=== PATIENT | female | born 1975 | race Caucasian/White ===

== ENCOUNTER 2018-11-07 07:58 | Emergency (ER) | payer OTHER, MEDICAID, SELFPAY ==
[2018-11-07 07:58] VITALS: BP 138/67; PULSE 85; RESP 18; TEMP 37.1; O2SAT 97; BMI 35.5
--- NOTE | 2018-11-07 08:09 | ED.ABDPAIN ---
HPI - Abdominal Pain General Chief Complaint: Abdominal Pain Stated Complaint: Abd pain Time Seen by Provider: 11/07/18 08:02 Source: patient and EMS Mode of arrival: EMS Limitations: no limitations History of Present Illness HPI narrative: Patient is a 43-year-old female with history of endometriosis presenting with sudden onset of right lower quadrant pain. She received 250 mg of fentanyl prior to arrival it seems to be a little bit better. 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 She has denies nausea vomiting or painful urination. The pain is non migratory. Moving makes pain worse. MD complaint: abdominal pain Location: RLQ Severity: severe Quality: stabbing Migration to: no migration Relieving factors: nothing Exacerbating factors: movement Related Data Previous Rx's Medication Instructions Recorded meloxicam 7.5 mg PO DAILY #10 tab 11/07/18 Allergies Allergy/AdvReac Type Severity Reaction Status Date / Time No Known Drug Allergies Allergy Verified 11/07/18 08:07 Review of Systems Review of Systems GENERAL: Denies chills, fatigue, malaise, fever, sweats, travel HEENT: Denies sinus pain, ear pain, sore throat, difficulty swallowing, neck pain RESPIRATORY: Denies dyspnea, cough, wheezing, hemoptysis, sputum. CARDIOVASCULAR: Denies chest pain, palpitations, orthopnea, edema GASTROINTESTINAL: See HPI : Denies dysuria, frequency, incontinence, hematuria, urinary retention, flank pain. MUSCULOSKELETAL: Denies weakness, joint pain, or bony pain SKIN: No rash, no erythema, no pruritus NEUROLOGIC: Denies weakness, dizziness, headache, numbness, change in speech, confusion PSYCHIATRIC: No concerning psychosocial issues. 12 point review of systems is negative except for those stated above and HPI PFSH Medical History Endometriosis (Acute) Social History Smoking Status: Current every day smoker Social History Smoking Status: Current every day smoker Exam Initial Vital Signs Initial Vital Signs: Vital Signs Temperature 98.8 F 11/07/18 07:58 Pulse Rate 85 11/07/18 07:58 Respiratory Rate 18 11/07/18 07:58 Blood Pressure 138/67 11/07/18 07:58 Pulse Oximetry 97 11/07/18 07:58 GENERAL: Well-appearing, well-nourished and in no acute distress. HEENT: Head atraumatic,EOMI, pupils reactive, face symmetric, moist mucous membranes CARDIOVASCULAR: Regular rate and rhythm without murmurs, rubs or gallops. RESPIRATORY: Breath sounds equal bilaterally, no wheezes rales or rhonchi. ABDOMEN: Soft, tender right lower quadrant no guarding no rebound negative Mireles sign no distension : No CVA tenderness EXTREMITIES: Normal range of motion, no clubbing or edema. Neurovascularly intact NEUROLOGICAL: Alert and oriented x4.Normal gait and speech. Cranial nerves II through XII grossly intact. SKIN: Warm, dry, no laceration, no petechiae, no rashes or lesions. Course Orders Ordered: ED Orders 11/07/18 08:09 US pelvic complete Stat 11/07/18 08:10 CT abdomen pelvis w con Stat 11/07/18 08:35 Complete Blood Count AUTO DIFF Stat Comprehensive Metabolic Panel Stat Lipase Stat 11/07/18 09:35 Urine Microscopic Stat Discontinued Medications Sodium Chloride (Normal Saline 0.9%) 1,000 mls @ 150 mls/hr IV CONT SERGIO Last Infusion: 11/07/18 11:19 Dose: 150 mls/hr Admin: 11/07/18 08:27 Dose: 150 mls/hr Ketorolac Tromethamine (Toradol) 30 mg IV NOW ONE Stop: 11/07/18 08:10 Last Admin: 11/07/18 08:26 Dose: 30 mg Vital Signs - 8 hr 11/07/18 07:58 Temperature 98.8 F Pulse Rate 85 Respiratory Rate 18 Blood Pressure 138/67 Pulse Oximetry 97 MDM - Abdominal Pain Lab Data Attestation: I reviewed the patient's lab results. Result diagrams: 11/07/18 08:35 11/07/18 08:35 Lab Results 11/07/18 11/07/18 11/07/18 Range/Units 08:35 08:35 09:35 WBC 12.5 H (4.5-11.0) X10^3/uL RBC 4.55 (4.0-5.2) X10^6/uL Hgb 14.3 (12.0-16.0) g/dL Hct 42.2 (36-46) % MCV 92.9 (80-100) fL MCH 31.5 (26-34) PG MCHC 34.0 (30-36) % RDW 14.3 (11.6-14.8) % Plt Count 255 (150-400) X10^3/uL Neut % (Auto) 81.0 H (50-75) % Lymph % (Auto) 13.3 L (25-40) % Overton % (Auto) 4.6 (3-14) % Eos % (Auto) 0.7 L (2-4) % Baso % (Auto) 0.4 (0-2) % Neut # (Auto) 27244 H (0043-0915) /uL Lymph # (Auto) 1700 (0687-4618) /uL Overton # (Auto) 600 (0-900) /uL Eos # (Auto) 100 (0-450) /uL Baso # (Auto) 0 (0-100) /uL Sodium 141 (137-145) mmol/L Potassium 4.2 (3.4-5.1) mmol/L Chloride 108 H (98-107) mmol/L Carbon Dioxide 18 L (22-32) mmol/L BUN 16 (7-17) mg/dL Creatinine 0.60 (0.52-1.04) mg/dL Estimated GFR > 60.0 (>60) mL/min BUN/Creatinine Ratio 26.7 H (6-22) Glucose 84 (70-100) mg/dL Calcium 9.1 (8.4-10.2) mg/dL Total Bilirubin 0.4 (0.2-1.3) mg/dL AST 22 (14-36) IU/L ALT 18 (9-52) IU/L Alkaline Phosphatase 96 (38-126) U/L Total Protein 6.9 (6.3-8.2) g/dL Albumin 3.7 (3.5-5.0) g/dL Globulin 3.2 (1.7-4.1) g/dL Albumin/Globulin Ratio 1.2 (1.0-2.8) Lipase 48 (23-300) U/L Urine RBC 5-10/hpf H (0-5/HPF) Urine WBC None seen (0-5/HPF) Ur Squamous Epith Cells 5-10 /hpf H (0-5/HPF) Amorphous Sediment 1+ Urine Bacteria None seen (None) Ur Culture Indicated? Cult not indicated Point of care testing: Point of Care Testing Test Results Negative Urine Dip Bedside Urine Glucose Negative Bedside Urine Bilirubin - Negative Bedside Urine Ketone ++ 40 Urine Specific Lin[place] 1.030 Bedside Urine Occult Blood +++ Bedside Urine pH 5.5 Bedside Urine Protein +/- 15 Bedside Urine Urobilinogen - Negative Bedside Urine Nitrite - Negative Bedside Urine Leukocytes - Negative Esterase Imaging Data CT scan - abdomen: Radiologist's impression: PROCEDURE: CT ABDOMEN PELVIS W CON INDICATIONS: rlq pain hx endometreosis. TECHNIQUE: After the administration of intravenous contrast, 5 mm thick sections acquired from the diaphragm to the symphysis. 5 mm coronal and sagittal reformats were acquired. For radiation dose reduction, the following was used: automated exposure control, adjustment of mA and/or kV according to patient size. COMPARISON: None. FINDINGS: Image quality: Excellent. ABDOMEN: Lung bases: Lung bases are clear. Heart size is normal. Solid organs: Liver is normal in size and enhancement. Gallbladder is unremarkable. Biliary system is non dilated. Pancreas enhances normally. Spleen is normal in size and enhancement. No adrenal nodules. Kidneys demonstrate normal size and enhancement, without hydronephrosis. Peritoneum and bowel: Bowel loops demonstrate normal wall thickness and caliber. The appendix is thin walled and gas filled. No free fluid or air. Nodes and vessels: No retroperitoneal or mesenteric adenopathy by size criteria. Aorta and inferior vena cava are normal in size. Miscellaneous: There is a large fat-containing umbilical hernia. PELVIS: Genitourinary: Bladder wall thickness is normal. There is a hypodense 2.9 x 2.4 x 3.0 cm mass within the left aspect of the uterine myometrium. Miscellaneous: No inguinal hernias or adenopathy. Bones: No suspicious bony lesions. No vertebral body compression fractures. IMPRESSION: 1. No acute intra-abdominal findings. Normal appendix. 2. Hypodense mass within the left uterine myometrium. Differential considerations include endometrioma versus centrally necrotic fibroid. Nonemergent gynecologic protocol MRI could be used to further characterize findings if clinically indicated. 3. Large fat-containing umbilical hernia. Dictated by: Shawna Cleveland M.D. on 11/07/2018 at 9:03 US pelvis: Radiologist's impression: PROCEDURE: US PELVIC COMPLETE INDICATIONS: RLQ PAIN, HX ENDOMETRIOSIS TECHNIQUE: Real-time scanning was performed of the pelvic organs, with image documentation. Additional endovaginal scanning was necessary due to incomplete visualization of the adnexal and endometrial structures by transabdominal scanning. COMPARISON: None. FINDINGS: Transabdominal scanning: Limited scanning through the kidneys shows no hydronephrosis. No pathologic free abdominal or pelvic fluid. Endovaginal scanning: Uterus: Uterus is normal in size at 8.3 x 4.4 x 6.2 cm. The endometrium measures 11.4 mm in combined thickness. A circumscribed echogenic mass is present within the left posterior aspect of the uterine myometrium which measures 2.4 x 2.1 x 3.2 cm Ovaries: The right ovary measures 3.3 x 1.5 x 2.7 cm and has a normal echotexture. The left ovary measures 3.2 x 1.1 x 2.9 cm and has a normal echotexture. IMPRESSION: 1. Echogenic mass within the myometrium which may represent an atypical fibroid. However, endometrioma could also be considered in the differential diagnosis. This finding could be better characterized with nonemergent gynecological protocol MRI. Dictated by: Shawna Cleveland M.D. on 11/07/2018 at 8:50 MDM Narrative Medical decision making narrative: Patient has an atypical fibroid. This may or may not be contributing to her pain. I recommend that she follow up telephone operator. At this time her pain has been controlled.. There is no evidence of ovarian torsion or abscess or any intra-abdominal abnormality. Discharge Plan Departure Patient Disposition: Home Clinical Impression: Fibroid Discharge Date/Time: 11/07/18 11:20 Interventions: ED Discharge Assessment Last Done: 11/07/18 11:20 Instructions: DI for Uterine Fibroids Activity Restrictions/Additional Instructions: *You have been diagnosed with atypical uterine fibroid *What to do: Recommend that he follow up with telephone operator *Continue to take medications as directed Meloxicam 7.5 mg once a day start tomorrow do not combine with any other NSAIDs such as ibuprofen, Motrin, Aleve, Advil, naproxen, ketorolac or other *Follow up with your primary care provider in 2-3 days *Return to ER if you should have increased pain, significant vaginal bleeding going through more than 1 super pad an hour, or any new, worsening or concerning symptoms Prescriptions: New meloxicam 7.5 mg tablet 7.5 mg PO DAILY Qty: 10 RF: 0 Referrals: Heidi Barnes MD [Physician] - Charity Way MD [Physician] - Demetrius Green MD [Physician] -
[2018-11-07] MEDS: KETOROLAC 60 MG/2 ML VIAL 30 MG IV (08:26)
[2018-11-07] MEDS: SODIUM CHLORIDE 0.9% 1,000 ML 150 ML IV (08:27)
[2018-11-07 08:45] LABS: Add Manual Diff / Slide Review NO; Basophils Absolute Auto 0 /uL (0-100); Basophils Percent Auto 0.4 % (0-2); Eosinophils Absolute Auto 100 /uL (0-450); Eosinophils Percent Auto 0.7 % (2-4); Hematocrit 42.2 % (36-46); Hemoglobin 14.3 g/dL (12.0-16.0); Lymphocytes Absolute Auto 1700 /uL (1100-4500); Lymphocytes Percent Auto 13.3 % (25-40); Mean Corpuscular Hemoglobin 31.5 PG (26-34); Mean Corpuscular Volume 92.9 fL (80-100); Monocytes Absolute Auto 600 /uL (0-900); Monocytes Percent Auto 4.6 % (3-14); Neutrophils Absolute Auto 10200 /uL (1500-7000); Platelet Count 255 X10^3/uL (150-400); Red Blood Cell Count 4.55 X10^6/uL (4.0-5.2); Red Cell Distribution Width 14.3 % (11.6-14.8); White Blood Cell Count 12.5 X10^3/uL (4.5-11.0)
[2018-11-07 08:55] LABS: Alanine Aminotransferase 18 IU/L (9-52); Albumin 3.7 g/dL (3.5-5.0); Albumin Globulin Ratio 1.2 (1.0-2.8); Alkaline Phosphatase 96 U/L (38-126); Aspartate Aminotransferase 22 IU/L (14-36); BUN Creatinine Ratio 26.7 (6-22); Bilirubin Total 0.4 mg/dL (0.2-1.3); Blood Urea Nitrogen 16 mg/dL (7-17); Calcium 9.1 mg/dL (8.4-10.2); Carbon Dioxide 18 mmol/L (22-32); Chloride 108 mmol/L (98-107); Estimated Glomerular Filt Rate > 60.0 mL/min (>60); Globulin 3.2 g/dL (1.7-4.1); Glucose 84 mg/dL (70-100); Lipase 48 U/L (23-300); Potassium 4.2 mmol/L (3.4-5.1); Sodium 141 mmol/L (137-145); Total Protein 6.9 g/dL (6.3-8.2)
[2018-11-07 09:04] LABS: HEMOLYSIS 59 (0-50)
[2018-11-07 10:31] LABS: Bacteria Urine None Seen; WBC Urine None Seen (0-5/HPF)
[2018-11-07 10:40] LABS: RBC Urine 5-10/HPF (0-5/HPF)
[2018-11-07 10:41] LABS: Amorphous Sediment Urine 1+; Culture Indicated Urine Cult Not Indicated; Squamous Epithelial Cell Urine 5-10 /HPF (0-5/HPF)
== END 2018-11-07 11:20 | disposition home or self-care (01) ==
PROVIDERS: Emergency Provider Emergency Medicine
DX: D21.9 Benign neoplasm of connective and other soft tissue, unspecified (principal)
CPT/HCPCS: 74177; 76830; 76856; 80053; 81003; 81015; 81025; 83690; 85025; 96361; 96374; 99283; 99284; J1885; Q9967